=== PATIENT | female | born 1940 | race Caucasian/White ===

== ENCOUNTER 2018-03-11 20:34 | Inpatient (IN) | payer MEDICARE, MEDICAID ==
[~2018-03-11] VITALS: Ht 162.6 cm; Wt 59.1 kg
--- NOTE | ~2018-03-11 | MORECARE ---
CASE MANAGEMENT DISCHARGE SUMMARY PATIENT: ALEXANDRIA MICHAEL UNIT: [id number] ADM DATE: 03/11/18 AGE: 77 : 42 SEX: F ROOM/BED: D.2223 AUTHOR: EDUARDO LEWIS PHYSICIAN: REFERRING PHYSICIAN: MARY REEDER MD DATE OF SERVICE: 03/12/18 Discharge Plan Patient Name: ALEXANDRIA MICHAEL Facility: [facility]:[place] : 1940 Planned Disposition: Home Anticipated Discharge Date: 03/16/18 Discharge Date: Expected LOS: 5 Initial Reviewer: [email or web address] Initial Review Date: 03/11/2018 Generated: 03/12/18 3:01 pm Patient Name: ALEXANDRIA MICHAEL Page [id number] at 1401 All edits/amendments must be made on the electronic document DICTATION DATE: 03/12/18 1401 STAFF NURSE MIDWIFE: INES 03/12/18 1401 RPT#: [id number] DC DATE: STATUS: ADM IN [facility] [address] [place] [address] END OF REPORT
--- NOTE | ~2018-03-11 | MORECARE ---
CASE MANAGEMENT DISCHARGE SUMMARY PATIENT: ALEXANDRIA MICHAEL UNIT: [id number] ADM DATE: 03/11/18 AGE: 77 : 42 SEX: F ROOM/BED: D.2223 AUTHOR: EDUARDO LEWIS PHYSICIAN: REFERRING PHYSICIAN: MARY REEDER MD DATE OF SERVICE: 03/17/18 Discharge Plan Patient Name: ALEXANDRIA MICHAEL Facility: [facility]:[place] : 1940 Planned Disposition: Home Anticipated Discharge Date: 03/16/18 Discharge Date: 03/15/2018 Expected LOS: 5 Initial Reviewer: [email or web address] Initial Review Date: 03/11/2018 Generated: 03/17/18 5:58 pm DCP- Discharge Planning Updated by [email or web address]: Pippa Argueta on 03/12/18 1:[address] Patient Name: ALEXANDRIA MICHAEL Admission Status: ER Accout number: [id number] Admission Date: 03-11-2018 : 1940 Admission Diagnosis: Attending: MARY REEDER Current LOS: 1 Anticipated DC Date: 03-16-2018 Planned Disposition: Home Primary Insurance: UNINSURED DISCOUNT PLAN Discharge Planning Comments: CM spoke to patient's granddaughter, Anna, to complete initial dc planning assessment. CM educated Anna on the CM role and verbal consent given by patient to complete assessment. Patient lives at home alone and is very independent in her care at home. She does not have a PCP and according to Anna she does not go to the doctor and this is the first time she has been sick. At discharge Anna stated the patient plans to return home alone and she feels this is a safe discharge. Anna reports the patient has applied for Medicare last week. She is unsure how long the process takes to get approved. She also stated she felt the patient would qualify for Medicaid. Cm encouraged her to speak to her family and seek assistance with applying for Medicaid. Cm also informed her that someone from the business office would be visiting with them and could assist with that as well. NAINA called Mandi with [employer], left message requesting she go speak to the family regarding Medicaid process/application assistance, and to check to see where patient was in the medicare process. Anna denied known discharge needs at this time and stated she did not feel the patient would need home health or other community resources at discharge. CM will continue to follow and will assist as needed with dc plans/needs. See below for more assessment information. Mechanical Tech: Pippa Argueta RN, [facility] DCPIA - Discharge Planning Initial Assessment Updated by [email or web address]: Pippa Argueta on 03/12/18 2:02 pm * Is the patient Alert and Oriented? Yes * How many steps to enter\exit or inside your home? None * PCP Does not have a PCP * Pharmacy [facility] [address] * Preadmission Environment Home Alone * ADLs Independent * Equipment None * List name and contact numbers for known caregivers / representatives who currently or will assist patient after discharge: Rommel Michael - son - [phone] Jordyn iMchael - dtr in law - [phone] Anna Hussein - Granddaughter - [phone] * Verbal permission to speak to the caregivers and representatives has been obtained from the patient. Yes * Community resources currently utilized None * Additional services required to return to the preadmission environment? No * Can the patient safely return to the preadmission environment? Yes * Has this patient been hospitalized within the prior 30 days at any hospital? No Last DP export: 03/17/18 3:41 p Patient Name: ALEXANDRIA MICHAEL Page [id number] at 1658 All edits/amendments must be made on the electronic document DICTATION DATE: 03/17/181657 STRETCH BOX TENDER: INES 03/17/181657 RPT#: [id number] DC DATE:03/15/18 STATUS: DIS IN [facility] [address] [place] [address] END OF REPORT
--- NOTE | ~2018-03-11 | MORECARE ---
CASE MANAGEMENT DISCHARGE SUMMARY PATIENT: ALEXANDRIA MICHAEL UNIT: [id number] ADM DATE: 03/11/18 AGE: 77 : 42 SEX: F ROOM/BED: D.2223 AUTHOR: EDUARDO LEWIS PHYSICIAN: REFERRING PHYSICIAN: MARY REEDER MD DATE OF SERVICE: 03/17/18 Discharge Plan Patient Name: ALEXANDRIA MICHAEL Facility: [facility]:[place] : 1940 Planned Disposition: Home Anticipated Discharge Date: 03/16/18 Discharge Date: 03/15/2018 Expected LOS: 5 Initial Reviewer: [email or web address] Initial Review Date: 03/11/2018 Generated: 03/17/18 5:41 pm DCP- Discharge Planning Updated by [email or web address]: Pippa Argueta on 03/12/18 1:[address] Patient Name: ALEXANDRIA MICHAEL Admission Status: ER Accout number: [id number] Admission Date: 03-11-2018 : 1940 Admission Diagnosis: Attending: MARY REEDER Current LOS: 1 Anticipated DC Date: 03-16-2018 Planned Disposition: Home Primary Insurance: UNINSURED DISCOUNT PLAN Discharge Planning Comments: CM spoke to patient's granddaughter, Anna, to complete initial dc planning assessment. CM educated Anna on the CM role and verbal consent given by patient to complete assessment. Patient lives at home alone and is very independent in her care at home. She does not have a PCP and according to Anna she does not go to the doctor and this is the first time she has been sick. At discharge Anna stated the patient plans to return home alone and she feels this is a safe discharge. Anna reports the patient has applied for Medicare last week. She is unsure how long the process takes to get approved. She also stated she felt the patient would qualify for Medicaid. Cm encouraged her to speak to her family and seek assistance with applying for Medicaid. Cm also informed her that someone from the business office would be visiting with them and could assist with that as well. NAINA called Mandi with [employer], left message requesting she go speak to the family regarding Medicaid process/application assistance, and to check to see where patient was in the medicare process. Anna denied known discharge needs at this time and stated she did not feel the patient would need home health or other community resources at discharge. CM will continue to follow and will assist as needed with dc plans/needs. See below for more assessment information. Systems Programmer: Pippa Argueta RN, [facility] DCPIA - Discharge Planning Initial Assessment Updated by [email or web address]: Pippa Argueta on 03/12/18 2:02 pm * Is the patient Alert and Oriented? Yes * How many steps to enter\exit or inside your home? None * PCP Does not have a PCP * Pharmacy [facility] [address] * Preadmission Environment Home Alone * ADLs Independent * Equipment None * List name and contact numbers for known caregivers / representatives who currently or will assist patient after discharge: Rommel Michael - son - [phone] Jordyn Michael - dtr in law - [phone] Anna Hussein - Granddaughter - [phone] * Verbal permission to speak to the caregivers and representatives has been obtained from the patient. Yes * Community resources currently utilized None * Additional services required to return to the preadmission environment? No * Can the patient safely return to the preadmission environment? Yes * Has this patient been hospitalized within the prior 30 days at any hospital? No Last DP export: 03/12/18 1:18 Patient Name: ALEXANDRIA MICHAEL Page [id number] at 1641 All edits/amendments must be made on the electronic document DICTATION DATE: 03/17/18 1640 WORDPRESS DEVELOPER: INES 03/17/18 1640 RPT#: [id number] DC DATE:03/15/18 STATUS: DIS IN [facility] [address] [place] [address] END OF REPORT
--- NOTE | ~2018-03-11 | CN ---
PATIENT NAME:ALEXANDRIA MICHAEL MEDICAL RECORD: [id number] : 44 LOCATION:D.MS [address] ADMIT DATE: 03/11/18 ACCOUNT: [id number] CONSULTING PHYSICIAN: ONEYDA LI MD REFERRING PHYSICIAN: MARY REEDER MD DATE OF CONSULTATION: 03/15/2018 The patient was not seen for consultation. She is being discharged this evening. She is in her room, dressed with all of her belongings and her son is there. She is angry and says that no one ever told her a psychiatrist was asked to see her. She refuses the consult. Her son is in agreement with this and feels that it is not necessary. In fact, he says that earlier today he told the nurse that he did not think a psychiatric consult was necessary. That is the current situation. Again, I did see her, but did not evaluate her. She does not wish to be evaluated nor does her son at this time. TRANSINT:[id number] Voice Confirmation ID: [id number] DOCUMENT ID: [id number] ONEYDA LI MD at 1254 CC: [id number] DICTATION DATE: 03/15/18 1742 BILLING SERVICES MANAGER: 03/16/18 0846 DIS IN 03/15/18 [place] [place] [address]
--- NOTE | ~2018-03-11 | MORECARE ---
CASE MANAGEMENT DISCHARGE SUMMARY PATIENT: ALEAXNDRIA MICHAEL UNIT: [id number] ADM DATE: 03/11/18 AGE: 77 : 42 SEX: F ROOM/BED: D.2223 AUTHOR: DEBBIEDOC PHYSICIAN: REFERRING PHYSICIAN: MARY REEDER MD DATE OF SERVICE: 03/12/18 Discharge Plan Patient Name: ALEXANDRIA MICHAEL Facility: [facility]:[place] : 1940 Planned Disposition: Home Anticipated Discharge Date: 03/16/18 Discharge Date: Expected LOS: 5 Initial Reviewer: [email or web address] Initial Review Date: 03/11/2018 Generated: 03/12/18 3:18 pm DCP- Discharge Planning Updated by [email or web address]: Pippa Argueta on 03/12/18 1:[address] Patient Name: ALEXANDRIA MICHAEL Admission Status: ER Accout number: [id number] Admission Date: 03-11-2018 : 1940 Admission Diagnosis: Attending: MARY REEDER Current LOS: 1 Anticipated DC Date: 03-16-2018 Planned Disposition: Home Primary Insurance: UNINSURED DISCOUNT PLAN Discharge Planning Comments: CM spoke to patient's granddaughter, Anna, to complete initial dc planning assessment. CM educated Anna on the CM role and verbal consent given by patient to complete assessment. Patient lives at home alone and is very independent in her care at home. She does not have a PCP and according to Anna she does not go to the doctor and this is the first time she has been sick. At discharge Anna stated the patient plans to return home alone and she feels this is a safe discharge. Anna reports the patient has applied for Medicare last week. She is unsure how long the process takes to get approved. She also stated she felt the patient would qualify for Medicaid. Cm encouraged her to speak to her family and seek assistance with applying for Medicaid. Cm also informed her that someone from the business office would be visiting with them and could assist with that as well. CM called Mandi with [employer], left message requesting she go speak to the family regarding Medicaid process/application assistance, and to check to see where patient was in the medicare process. Anna denied known discharge needs at this time and stated she did not feel the patient would need home health or other community resources at discharge. CM will continue to follow and will assist as needed with dc plans/needs. See below for more assessment information. Sort Worker: Pippa Argueta RN, [facility] DCPIA - Discharge Planning Initial Assessment Updated by [email or web address]: Pippa Argueta on 03/12/18 2:02 pm * Is the patient Alert and Oriented? Yes * How many steps to enter\exit or inside your home? None * PCP Does not have a PCP * Pharmacy [facility] [address] * Preadmission Environment Home Alone * ADLs Independent * Equipment None * List name and contact numbers for known caregivers / representatives who currently or will assist patient after discharge: Rommel Michael - son - [phone] Jordyn Michael - dtr in law - [phone] Anna Hussein - Granddaughter - [phone] * Verbal permission to speak to the caregivers and representatives has been obtained from the patient. Yes * Community resources currently utilized None * Additional services required to return to the preadmission environment? No * Can the patient safely return to the preadmission environment? Yes * Has this patient been hospitalized within the prior 30 days at any hospital? No Last DP export: 03/12/18 1:09 Patient Name: ALEXANDRIA MICHAEL Page [id number] at 1418 All edits/amendments must be made on the electronic document DICTATION DATE: 03/12/181417 TECHNOLOGY ADMINISTRATOR: INES 03/12/181417 RPT#: [id number] DC DATE: STATUS: ADM IN [facility] [address] [place] [address] END OF REPORT
--- NOTE | ~2018-03-11 | MORECARE ---
CASE MANAGEMENT DISCHARGE SUMMARY PATIENT: ALEXANDRIA MICHAEL UNIT: [id number] ADM DATE: 03/11/18 AGE: 77 : 42 SEX: F ROOM/BED: D.2223 AUTHOR: EDUARDO LEWIS PHYSICIAN: REFERRING PHYSICIAN: MARY REEDER MD DATE OF SERVICE: 03/12/18 Discharge Plan Patient Name: ALEXANDRIA MICHAEL Facility: [facility]:[place] : 1940 Planned Disposition: Home Anticipated Discharge Date: 03/16/18 Discharge Date: Expected LOS: 5 Initial Reviewer: [email or web address] Initial Review Date: 03/11/2018 Generated: 03/12/18 3:09 pm DCPIA - Discharge Planning Initial Assessment Updated by [email or web address]: Pippa Argueta on 03/12/18 2:02 pm * Is the patient Alert and Oriented? Yes * How many steps to enter\exit or inside your home? None * PCP Does not have a PCP * Pharmacy [facility] [address] * Preadmission Environment Home Alone * ADLs Independent * Equipment None * List name and contact numbers for known caregivers / representatives who currently or will assist patient after discharge: Rommel Michael - son - [phone] Jordyn Michael - dtr in law - [phone] Anna Hussein - Granddaughter - [phone] * Verbal permission to speak to the caregivers and representatives has been obtained from the patient. Yes * Community resources currently utilized None * Additional services required to return to the preadmission environment? No * Can the patient safely return to the preadmission environment? Yes * Has this patient been hospitalized within the prior 30 days at any hospital? No Last DP export: 03/12/18 1:01 Patient Name: ALEXANDRIA MICHAEL Page 47136 at 1409 All edits/amendments must be made on the electronic document DICTATION DATE: 03/12/181407 RESIDENTIAL THERAPIST: INES 03/12/181407 RPT#: [id number] DC DATE: STATUS: ADM IN [facility] [address] [place] [address] END OF REPORT
[2018-03-11] MEDS ORDERED: ATARAX 25 MG TA25 MG PO (20:47)
[2018-03-11] MEDS ORDERED: BACTRIM DS1 TAB PO (20:48)
[2018-03-11 21:21] LABS: BASOPHILS 0.8 % (0-2); EOSINOPHILS 20.4 % (0-7); HEMATOCRIT 38.5 % (36.0-48.0); HEMOGLOBIN 12.9 g/dL (12-16); IMMATURE GRANULOCYTES 0.1 % (0-5); LYMPHOCYTES 13.9 % (15-50); MCH 31.7 pg (26.0-34.0); MCHC 33.5 g/dL (31.0-37.0); MCV 94.6 fL (80.0-100.0); MONOCYTES 15.4 % (2-11); NEUTROPHILS 49.4 % (40-80); PLATELET COUNT 257 10x3/uL (130-400); RBC 4.07 10x6/uL (4.00-5.40); RDW 12.7 % (11.5-14.5); WBC 7.8 10x3/uL (4.8-10.8)
[2018-03-11 21:34] LABS: ALBUMIN 3.5 g/dL (3.4-5.0); ANION GAP 11.7 mmol/L (8-16); BILIRUBIN - TOTAL 0.28 mg/dL (0.2-1.3); CALCIUM 8.7 mg/dL (8.5-10.1); CARBON DIOXIDE 27.8 mmol/L (21.0-32.0); POTASSIUM - SERUM 4.5 mmol/L (3.5-5.1); PROTEIN - SERUM 7.1 g/dL (6.4-8.2)
[2018-03-11 22:03] LABS: APPEARANCE CLEAR (CLEAR); BILIRUBIN NEGATIVE (NEGATIVE); COLOR YELLOW (YELLOW); GLUCOSE NEGATIVE (NEGATIVE); KETONE NEGATIVE (NEGATIVE); NITRITE NEGATIVE (NEGATIVE); PROTEIN NEGATIVE (NEGATIVE); UROBILINOGEN NORMAL (NORMAL)
[2018-03-11 23:21] VITALS: BP 188/71; Ht 162.6 cm; Wt 59.1 kg
[2018-03-12 05:16] VITALS: BP 131/72
[2018-03-12 09:38] VITALS: BP 151/61
[2018-03-12 13:20] VITALS: BP 152/71
[2018-03-12 17:39] VITALS: BP 138/56
[2018-03-12 20:00] VITALS: BP 153/60
[2018-03-13] VITALS: BP 135/59
[2018-03-13 04:00] VITALS: BP 167/74
[2018-03-13 05:51] LABS: BASOPHILS 1.1 % (0-2); EOSINOPHILS 3.8 % (0-7); HEMATOCRIT 36.6 % (36.0-48.0); HEMOGLOBIN 11.8 g/dL (12-16); IMMATURE GRANULOCYTES 0.2 % (0-5); LYMPHOCYTES 18.9 % (15-50); MCH 31.1 pg (26.0-34.0); MCHC 32.2 g/dL (31.0-37.0); MEAN PLATELET VOLUME 10.3 fL (7.4-10.4); MONOCYTES 13.6 % (2-11); NEUTROPHILS 62.4 % (40-80); PLATELET COUNT 236 10x3/uL (130-400); RBC 3.79 10x6/uL (4.00-5.40); RDW 12.9 % (11.5-14.5); WBC 6.3 10x3/uL (4.8-10.8)
[2018-03-13 06:09] LABS: MCV 96.6 fL (80.0-100.0)
[2018-03-13 06:17] LABS: ANION GAP 9.4 mmol/L (8-16); CALCIUM 8.1 mg/dL (8.5-10.1); CARBON DIOXIDE 31.3 mmol/L (21.0-32.0); CREATININE - SERUM 1.3 mg/dL (0.6-1.3); POTASSIUM - SERUM 3.7 mmol/L (3.5-5.1)
[2018-03-13 08:50] VITALS: BP 153/68
[2018-03-13 12:00] VITALS: BP 174/75
[2018-03-13 16:17] VITALS: BP 188/84
[2018-03-13 21:47] VITALS: BP 144/63
[2018-03-14 05:43] VITALS: BP 149/73
[2018-03-14 05:57] LABS: EOSINOPHILS 2.7 % (0-7); HEMOGLOBIN 12.4 g/dL (12-16); IMMATURE GRANULOCYTES 0.2 % (0-5); LYMPHOCYTES 16.9 % (15-50); MCH 31.3 pg (26.0-34.0); MCHC 32.6 g/dL (31.0-37.0); MEAN PLATELET VOLUME 10.3 fL (7.4-10.4); MONOCYTES 13.3 % (2-11); NEUTROPHILS 65.9 % (40-80); PLATELET COUNT 267 10x3/uL (130-400); RBC 3.96 10x6/uL (4.00-5.40); WBC 5.9 10x3/uL (4.8-10.8)
[2018-03-14 06:04] LABS: ANION GAP 11.5 mmol/L (8-16); CALCIUM 8.4 mg/dL (8.5-10.1); CARBON DIOXIDE 30.8 mmol/L (21.0-32.0); POTASSIUM - SERUM 3.3 mmol/L (3.5-5.1)
[2018-03-14 06:11] LABS: CREATININE - SERUM 0.9 mg/dL (0.6-1.3)
[2018-03-14 09:57] VITALS: BP 156/64
[2018-03-14 13:58] VITALS: BP 147/71
[2018-03-14 17:01] VITALS: BP 157/71
[2018-03-14 20:00] VITALS: BP 120/54
[2018-03-15 05:58] LABS: EOSINOPHILS 3.5 % (0-7); HEMOGLOBIN 12.4 g/dL (12-16); IMMATURE GRANULOCYTES 0.2 % (0-5); LYMPHOCYTES 18.2 % (15-50); MCHC 32.6 g/dL (31.0-37.0); MEAN PLATELET VOLUME 9.8 fL (7.4-10.4); MONOCYTES 17.5 % (2-11); NEUTROPHILS 59.6 % (40-80); PLATELET COUNT 246 10x3/uL (130-400); RDW 12.8 % (11.5-14.5); WBC 5.8 10x3/uL (4.8-10.8)
[2018-03-15 06:00] VITALS: BP 155/71
[2018-03-15 06:16] LABS: ANION GAP 10.4 mmol/L (8-16); CALCIUM 8.3 mg/dL (8.5-10.1); CREATININE - SERUM 1.1 mg/dL (0.6-1.3); POTASSIUM - SERUM 3.4 mmol/L (3.5-5.1)
[2018-03-15 08:46] VITALS: BP 152/71
[2018-03-15 12:30] VITALS: BP 142/62
[2018-03-15 15:45] VITALS: BP 109/58
[2018-03-15] MEDS ORDERED: KEFLEX250 MG PO (18:31)
[2018-03-15] MEDS ORDERED: FLORAJEN3 CAPS460 MG PO (18:33)
[2018-03-15] MEDS ORDERED: LISINOPRIL10 MG PO (18:33)
[2018-03-15] MEDS ORDERED: EUCERIN ORIGIN500 ML TP (18:34)
== END 2018-03-15 19:43 | disposition home or self-care (01) | DRG 602 ==
LOC: D.ER 20:34 → D.MS 21:52
PROVIDERS: Emergency Medicine; Internal Medicine Nephrology
DX: L03.116 Cellulitis of left lower limb (principal); G93.41 Metabolic encephalopathy; L27.0 Generalized skin eruption due to drugs and medicaments taken internally; T37.0X5A Adverse effect of sulfonamides, initial encounter; D72.1 Eosinophilia; Z85.038 Personal history of other malignant neoplasm of large intestine; F03.90 Unspecified dementia, unspecified severity, without behavioral disturbance, psychotic disturbance, mood disturbance, and anxiety